=== PATIENT | female | born 2000 | race Hispanic/Latino ===

== ENCOUNTER 2025-03-20 19:01 | Emergency (ER) | payer OTHER, BC ==
[2025-03-20] MEDS ORDERED: Acetaminophen 500 MG TAB ONE (19:27)
== END 2025-03-20 20:42 | disposition short-term general hospital (02) ==
LOC: EDBD 19:01 → MADERS 19:01
DX: O9A.213 Injury, poisoning and certain other consequences of external causes complicating pregnancy, third trimester (principal); R10.30 Lower abdominal pain, unspecified; Z3A.38 38 weeks gestation of pregnancy; V49.50XA Passenger injured in collision with unspecified motor vehicles in traffic accident, initial encounter